=== PATIENT | male | born 1950 | race Caucasian/White ===

== ENCOUNTER 2019-03-20 18:22 | Outpatient (REF) | payer BC, MEDICARE, SELFPAY ==
[2019-03-20 21:00] LABS: ALT 31 U/L (12-78); Anion Gap 8.9 mmol/L (3-11); BUN 23 mg/dL (7-18); CO2 31.1 mmol/L (21.0-32.0); CREATININE 1.33 mg/dL (0.70-1.30); Calcium 9.3 mg/dL (8.5-10.1); Chloride 101 mmol/L (98-107); Digoxin 1.27 ng/mL (0.90-2.00); Estimated GFR 53.31 (mL/min/1.73m2); Glucose 130 mg/dL (70-100); LDL CHOLESTEROL 83 mg/dL (<100); Potassium 3.7 mmol/L (3.5-5.1); Sodium 141 mmol/L (136-145)
== END 2019-03-20 18:42 ==
LOC: NCHCN 18:22
PROVIDERS: PCP Internal Medicine; Visit Provider Internal Medicine
DX: I10 Essential (primary) hypertension (principal); E78.5 Hyperlipidemia, unspecified
CPT/HCPCS: 80048; 83721; 80162; 84460

== ENCOUNTER 2020-07-01 18:24 | Outpatient (REF) | payer BC, MEDICARE, SELFPAY ==
[2020-07-01 21:41] LABS: ALT 33 U/L (16-63); Anion Gap 11.5 mmol/L (3-11); BUN 32 mg/dL (7-18); CO2 26.5 mmol/L (21.0-32.0); CREATININE 1.46 mg/dL (0.70-1.30); Calcium 9.2 mg/dL (8.5-10.1); Chloride 99 mmol/L (98-107); Estimated GFR 47.73 (mL/min/1.73m2); Glucose 277 mg/dL (74-106); LDL CHOLESTEROL 76 mg/dL (<100); Potassium 4.3 mmol/L (3.5-5.1); Sodium 137 mmol/L (136-145)
== END 2020-07-01 18:44 ==
LOC: NCHCN 18:24
PROVIDERS: PCP Internal Medicine; Visit Provider Internal Medicine
DX: Z00.00 Encounter for general adult medical examination without abnormal findings (principal); E11.9 Type 2 diabetes mellitus without complications; I48.0 Paroxysmal atrial fibrillation; Z79.01 Long term (current) use of anticoagulants
CPT/HCPCS: 80048; 83721; 84460

== ENCOUNTER 2021-01-20 08:36 | Outpatient (CLI) | payer BC, MEDICARE, SELFPAY | END 2021-01-20 08:37 | disposition home or self-care (01) | LOC: DI.CARD 08:37 | PROVIDERS: PCP Internal Medicine; Visit Provider Internal Medicine Cardiovascular Disease ==

== ENCOUNTER 2021-02-16 13:23 | Outpatient (REF) | payer BC, MEDICARE, SELFPAY ==
[2021-02-16 16:27] LABS: HCT 42.4 % (40.0-50.0); HGB 13.9 g/dL (13.5-17.5)
[2021-02-16 16:38] LABS: Albumin 3.6 g/dL (3.4-5.0); Anion Gap 11.7 mmol/L (3-11); BUN 27 mg/dL (7-18); CO2 24.3 mmol/L (21.0-32.0); CREATININE 1.6 mg/dL (0.70-1.30); Calcium 9.1 mg/dL (8.5-10.1); Chloride 105 mmol/L (98-107); Estimated GFR 42.82 (mL/min/1.73m2); Glucose 213 mg/dL (74-106); Sodium 141 mmol/L (136-145)
[2021-02-16 16:53] LABS: PHOSPHORUS 2.9 mg/dL (2.6-4.7)
[2021-02-16 17:50] LABS: Bacteria Negative HPF (Negative); C & S Indicated? C&S Done As Ordered; Casts Negative LPF (Negative); Crystals Negative HPF (Negative); Epithelial Cells Negative HPF (Negative); Mucus Negative (Negative); Other Cells Negative (Negative); RBC >50 HPF (0-2); WBC >50 HPF (0-5)
== END 2021-02-16 13:24 | disposition home or self-care (01) ==
LOC: NCHCN 13:23
PROVIDERS: Physician Assistant; PCP Internal Medicine; Visit Provider Internal Medicine
DX: R31.9 Hematuria, unspecified (principal)
CPT/HCPCS: 80069; 81015; 85014; 85018; 87086

== ENCOUNTER 2021-03-22 22:07 | Outpatient (REF) | payer BC, MEDICARE, SELFPAY ==
[2021-03-22 19:55] LABS: Uric Acid 6.1 mg/dL (3.5-7.2)
== END 2021-03-22 22:08 | disposition home or self-care (01) ==
LOC: NCHCN 22:07
PROVIDERS: PCP Internal Medicine; Visit Provider Nurse Practitioner Family
DX: M10.071 Idiopathic gout, right ankle and foot (principal)
CPT/HCPCS: 84550

== ENCOUNTER 2021-04-21 08:28 | Outpatient (CLI) | payer BC, MEDICARE, SELFPAY ==
--- NOTE | 2021-04-21 08:15 | RT.EKG_ITS ---
APPROVED REPORT Exam: Resting ECG Reason for Exam: a clay Patient Location: O HR:112 bpm ECG Measurements Heart Rate 112 AXIS VT [id number] P [id number] QRSd 137 QRS -77 QT 361 T -5 QTc 493 Conclusion Atrial fibrillation...V-rate 80-155, irreg A-activity RBBB and LAFB...QRSd >120mS, axis(-40,240) Probable inferior infarct, age indeterminate...Q>35mS, T neg, II III aVF
== END 2021-04-21 08:29 | disposition home or self-care (01) ==
LOC: DI.CARD 08:34
PROVIDERS: PCP Internal Medicine; Visit Provider Internal Medicine Cardiovascular Disease
DX: I48.19 Other persistent atrial fibrillation (principal)
CPT/HCPCS: 93010

== ENCOUNTER 2021-07-21 08:22 | Outpatient (CLI) | payer BC, MEDICARE, SELFPAY | END 2021-07-21 08:23 | disposition home or self-care (01) | LOC: DI.CARD 08:23 | PROVIDERS: PCP Internal Medicine; Visit Provider Internal Medicine Cardiovascular Disease | DX: I48.19 Other persistent atrial fibrillation (principal) | CPT/HCPCS: 93010 ==

== ENCOUNTER 2021-09-22 08:32 | Outpatient (CLI) | payer BC, MEDICARE, SELFPAY ==
--- NOTE | 2021-09-22 08:30 | RT.EKG_ITS ---
APPROVED REPORT Exam: Resting ECG Reason for Exam: afib Patient Location: O HR:121 bpm ECG Measurements Heart Rate 121 AXIS AR [id number] P [id number] QRSd 138 QRS -63 QT 364 T 7 QTc 517 Conclusion Atrial fibrillation...V-rate 88-165, irreg A-activity RBBB and LAFB...QRSd >120mS, axis(-40,240)
== END 2021-09-22 08:33 | disposition home or self-care (01) ==
LOC: DI.CARD 08:33
PROVIDERS: PCP Internal Medicine; Visit Provider Internal Medicine Cardiovascular Disease
DX: I48.19 Other persistent atrial fibrillation (principal)
CPT/HCPCS: 93010

== ENCOUNTER 2021-12-22 08:02 | Outpatient (CLI) | payer BC, MEDICARE, SELFPAY ==
--- NOTE | 2021-12-22 08:00 | RT.EKG_ITS ---
APPROVED REPORT Exam: Resting ECG Reason for Exam: afib Patient Location: O HR:88 bpm ECG Measurements Heart Rate 88 AXIS UT [id number] P [id number] QRSd 152 QRS -64 QT 398 T 11 QTc 482 Conclusion Atrial fibrillation...V-rate 65-106, irreg A-activity Right bundle branch block...QRSd>120, terminal axis(90,270)
== END 2021-12-22 08:03 | disposition home or self-care (01) ==
LOC: DI.CARD 08:03
PROVIDERS: PCP Internal Medicine; Visit Provider Internal Medicine Cardiovascular Disease
DX: I48.19 Other persistent atrial fibrillation (principal)
CPT/HCPCS: 93010

== ENCOUNTER 2021-12-29 16:19 | Outpatient (REF) | payer BC, MEDICARE, SELFPAY ==
[2021-12-29 19:51] LABS: HCT 39.9 % (40.0-50.0); HGB 13.3 g/dL (13.5-17.5); MCH 31.3 pg (27.0-33.0); MCHC 33.3 % (32.0-36.0); MCV 93.9 fL (80-95); MPV 10.7 fL (8.0-11.0); Platelet Count 232 10^3/uL (130-400); RBC 4.25 10^6/uL (4.36-5.78); RDW 14.5 % (11.8-14.1); RDW-SD 49.4 fL; WBC 10.87 10^3/uL (4.4-10.8)
[2021-12-29 20:05] LABS: ALT 36 U/L (16-63); AST 21 U/L (15-37); Albumin 3.7 g/dL (3.4-5.0); Alkaline Phosphatase 71 U/L (46-116); Anion Gap 9.8 mmol/L (3-11); BUN 38 mg/dL (7-18); Bilirubin, Total 0.6 mg/dL (0.2-1.0); CO2 26.2 mmol/L (21.0-32.0); CREATININE 1.4 mg/dL (0.70-1.30); Calcium 9.2 mg/dL (8.5-10.1); Chloride 102 mmol/L (98-107); Estimated GFR 49.96 (mL/min/1.73m2); Glucose 102 mg/dL (74-106); Potassium 3.8 mmol/L (3.5-5.1); Sodium 138 mmol/L (136-145); Total Protein 7.5 g/dL (6.4-8.2)
== END 2021-12-29 16:20 | disposition home or self-care (01) ==
LOC: NCHCN 16:19
PROVIDERS: PCP Internal Medicine; Visit Provider Internal Medicine
DX: I10 Essential (primary) hypertension (principal); N18.30 Chronic kidney disease, stage 3 unspecified; Z79.01 Long term (current) use of anticoagulants; I48.19 Other persistent atrial fibrillation
CPT/HCPCS: 80053; 85027

== ENCOUNTER 2022-10-05 18:13 | Outpatient (REF) | payer BC, MEDICARE, SELFPAY ==
[2022-10-05 18:38] LABS: Bilirubin Negative (Negative); Blood Large (Negative); Clarity Sl Cloudy (Clear); Glucose 500 mg/dL (Negative); Ketones Negative (Negative); Leukocyte Esterase Negative (Negative); Nitrite Negative (Negative); Specific Gravity 1.025 (1.005-1.025)
[2022-10-05 18:41] LABS: HCT 39.7 % (40.0-50.0); HGB 13.5 g/dL (13.5-17.5); MCV 94 fL (80-95); MPV 10.1 fL (8.0-11.0); Platelet Count 246 10^3/uL (130-400); RBC 4.22 10^6/uL (4.36-5.78); RDW 15.6 % (11.8-14.1); RDW-SD 53.4 fL; WBC 10.44 10^3/uL (4.4-10.8)
[2022-10-05 18:47] LABS: Bacteria Rare HPF (Negative); Crystals Negative HPF (Negative); Epithelial Cells Few HPF (Negative); Mucus Trace (Negative); RBC >50 HPF (0-2); WBC 0-2 HPF (0-5)
[2022-10-05 18:48] LABS: C & S Indicated? No
== END 2022-10-05 18:14 | disposition home or self-care (01) ==
LOC: NCHCN 18:13
PROVIDERS: PCP Internal Medicine; Visit Provider Nurse Practitioner Family
DX: R31.9 Hematuria, unspecified (principal)
CPT/HCPCS: 85027; 81003; 81015

== ENCOUNTER 2022-12-21 08:26 | Outpatient (CLI) | payer BC, MEDICARE, SELFPAY ==
--- NOTE | 2022-12-21 08:15 | RT.EKG_ITS ---
APPROVED REPORT Exam: Resting ECG Reason for Exam: afib Patient Location: O HR:109 bpm ECG Measurements Heart Rate 109 AXIS UT [id number] P [id number] QRSd 143 QRS -78 QT 352 T 6 QTc 475 Conclusion Atrial fibrillation...V-rate 80-135, irreg A-activity Right bundle branch block...QRSd>120, terminal axis(90,270)
== END 2022-12-21 08:27 | disposition home or self-care (01) ==
LOC: DI.CARD 08:26
PROVIDERS: PCP Internal Medicine; Visit Provider Internal Medicine Cardiovascular Disease
DX: I48.19 Other persistent atrial fibrillation (principal); R94.31 Abnormal electrocardiogram [ECG] [EKG]; I45.19 Other right bundle-branch block
CPT/HCPCS: 93010

== ENCOUNTER 2023-07-11 21:29 | Outpatient (REF) | payer BC, MEDICARE, SELFPAY ==
[2023-07-11 19:28] LABS: Anion Gap 12.8 mmol/L (3-11); BUN 43 mg/dL (7-18); CO2 23.2 mmol/L (21.0-32.0); CREATININE 2.2 mg/dL (0.70-1.30); Calcium 9.1 mg/dL (8.5-10.1); Chloride 100 mmol/L (98-107); Estimated GFR 30.85 (mL/min/1.73m2); Glucose 178 mg/dL (74-106); Sodium 136 mmol/L (136-145)
== END 2023-07-11 21:30 | disposition home or self-care (01) ==
LOC: NCHCN 21:29
PROVIDERS: PCP Internal Medicine; Visit Provider Nurse Practitioner Family
DX: N18.30 Chronic kidney disease, stage 3 unspecified (principal); L08.89 Other specified local infections of the skin and subcutaneous tissue
CPT/HCPCS: 80048; 87077; 87186; 87070; 87205

== ENCOUNTER 2023-09-20 12:53 | Outpatient (REF) | payer BC, MEDICARE, SELFPAY | END 2023-09-20 12:54 | disposition home or self-care (01) | LOC: NCHCN 12:53 | PROVIDERS: PCP Internal Medicine; Visit Provider Internal Medicine | DX: L03.115 Cellulitis of right lower limb (principal) | CPT/HCPCS: 87077; 87070; 87186; 87205 ==

== ENCOUNTER 2023-11-16 14:39 | Outpatient (REF) | payer BC, MEDICARE, SELFPAY ==
[2023-11-16 19:17] LABS: Abs Immature Grans 0.19 10^3/uL (0.0-0.06); Absolute Basophil Count 0.12 10^3/uL (0.0-0.2); Absolute Neutrophil Count 20.44 10^3/uL (1.2-6.7); Basophils % 0.5; Eosinophils % 0.5; HCT 39.4 % (40.0-50.0); Immature Grans % 0.8; Lymphocytes % 7.7; MCH 31.2 pg (27.0-33.0); MCV 95 fL (80-95); MPV 10.7 fL (8.0-11.0); Monocytes % 5.6; Neutrophils % 84.9; Platelet Count 258 10^3/uL (130-400); RBC 4.17 10^6/uL (4.36-5.78); RDW 14.6 % (11.8-14.1); RDW-SD 50.9 fL; WBC 24.08 10^3/uL (4.4-10.8)
[2023-11-16 19:23] LABS: Absolute Eosinophil Count 0.12 10^3/uL (0.0-0.7); Absolute Lymphocyte Count 1.85 10^3/uL (1.2-3.4); Absolute Monocyte Count 1.35 10^3/uL (0.1-0.8); BUN 32 mg/dL (7-18); CREATININE 1.8 mg/dL (0.70-1.30); Calcium 9.3 mg/dL (8.5-10.1); Chloride 103 mmol/L (98-107); Estimated GFR 39.25 (mL/min/1.73m2); Glucose 222 mg/dL (74-106); Potassium 3.8 mmol/L (3.5-5.1); Sodium 140 mmol/L (136-145)
[2023-11-16 19:29] LABS: RBC >50 HPF (0-2); WBC 20-50 HPF (0-5)
[2023-11-16 19:30] LABS: C & S Indicated? C&S Done As Ordered
[2023-11-16 19:31] LABS: RBC Morphology Normal
[2023-11-16 19:32] LABS: Diff Comment Agrees w/ Instrument
[2023-11-17 20:32] LABS: PSA, Screening 18.6 ng/mL (<=6.5)
== END 2023-11-16 14:40 | disposition home or self-care (01) ==
LOC: NCHCN 14:39
PROVIDERS: PCP Internal Medicine; Visit Provider Physician Assistant
DX: R30.0 Dysuria (principal); R35.0 Frequency of micturition; Z12.5 Encounter for screening for malignant neoplasm of prostate
CPT/HCPCS: 80048; 84153; 87077; 81015; 85025; 87086; 87186

== ENCOUNTER 2024-04-24 15:21 | Outpatient (REF) | payer BC, MEDICARE, SELFPAY ==
[2024-04-24 20:18] LABS: HCT 42.9 % (40.0-50.0); HGB 14.2 g/dL (13.5-17.5); MCH 31.8 pg (27.0-33.0); MCHC 33.1 % (32.0-36.0); MCV 96 fL (80-95); MPV 10.6 fL (8.0-11.0); Platelet Count 218 10^3/uL (130-400); RBC 4.46 10^6/uL (4.36-5.78); RDW 14.3 % (11.8-14.1); RDW-SD 50.2 fL; WBC 11.58 10^3/uL (4.4-10.8)
[2024-04-24 20:36] LABS: ALT 27 U/L (16-63); AST 23 U/L (15-37); Albumin 3.7 g/dL (3.4-5.0); Alkaline Phosphatase 73 U/L (46-116); Anion Gap 14.2 mmol/L (3-11); BUN 39 mg/dL (7-18); Bilirubin, Total 0.5 mg/dL (0.2-1.0); CO2 23.8 mmol/L (21.0-32.0); CREATININE 1.8 mg/dL (0.70-1.30); Calcium 9.1 mg/dL (8.5-10.1); Calculated LDL 35 mg/dL (<100); Chloride 106 mmol/L (98-107); Cholesterol 97 mg/dL (<200); Estimated GFR 39.01 (mL/min/1.73m2); Glucose 142 mg/dL (74-106); HDL Cholesterol 38 mg/dL (40-60); Potassium 4.3 mmol/L (3.5-5.1); Sodium 144 mmol/L (136-145); Total Protein 7.5 g/dL (6.4-8.2); Triglyceride 121 mg/dL (<150)
== END 2024-04-24 15:22 | disposition home or self-care (01) ==
LOC: NCHCN 15:21
PROVIDERS: PCP Internal Medicine; Visit Provider Internal Medicine
DX: E78.5 Hyperlipidemia, unspecified (principal); Z51.81 Encounter for therapeutic drug level monitoring
CPT/HCPCS: 80053; 80061; 85027

== ENCOUNTER 2024-08-12 01:50 | Outpatient (CLI) | payer BC, MEDICARE, SELFPAY ==
--- NOTE | 2024-08-12 | DI.NM_ITS ---
APPROVED REPORT Exam: Pharmacologic Patient Location: Out-Patient Room/Bed: Stress Nurse: Purvi Mccormick RN; Ynes Brown RN Ordering Provider:MARCO SKINNER, Contact Number: [phone] BMI: 28.24 Baseline Rhythm: Atrial Fibrillation, RBBB Indications: unstable angina co-occurent and due to coronary arteriosclerosis Medical History Medical History: BPH, afib, CKD, CAD, HTN, osteomyelitis, HLD, nicotine dependence, BARBRA, DM2 Cardiac Medications: aspirin, atorvastatin, carvedilol, digoxin, diltiazem, HCTZ, lisinopril, metopro lol, xarelto, nitroglycerin Allergies: thiopental, clopidogrel Cardiac Risk Factors: family hx, diabetes, HTN, HLD, PVD, CVD, smoker Previous Cardiac Procedures: cardiac cath 2020, 2003 - 2 stents Pretest Chest Pain Characteristics: none Exercise History: Physically active Physical Disabilities: none Lung Sounds: Clear to auscultation Heart Sounds: Irregular Stress Test Details Test: Pharmacologic stress testing performed using 0.4 mg of regadenoson per 5 mL given IV over 10 s econds. Reason for pharmacologic stress test: beta praful. Nuclear Acquisition: Rest Tc-99m/Stress Tc-99m 1 day Rest Isotope: Tc-99m Sestamibi. Dose: 10.0 Date: 08/12/2024 Injection Time: 1105 Stress Isotope: Tc-99m Sestamibi. Dose: 30.0 Date: 08/12/2024 Injection Time: 1250 HR Resting HR Supine: 58 bpm Max Heart Rate (APMHR): 146.347910 bpm Target HR (85% APMHR): 124.363944 bpm Max HR Achieved: 98 bpm % of APMHR: 67.12 Recovery HR: 75 bpm BP Resting BP Supine: 118/62 mmHg Max BP: 132/64 mmHg Recovery BP: 114/58 mmHg ECG Resting ECG: Atrial Fibrillation, RBBB Ectopy: occasional PVCs Stress ECG: Atrial Fibrillation, RBBB ST Change: Nondiagnostic low heart rate Arrhythmia: occasional PVCs Recovery ECG: Atrial Fibrillation, RBBB Recovery ST Change: Nondiagnostic low heart rate Recovery Arrhythmia: occasional PVCs Clinical Stress Symptoms: mild SOB, mild dizziness Angina Score: None Rate Pressure Product: 22325 Stress ECG Conclusion 1. Resting electrocardiogram showed atrial fibrillation, right bundle branch block 2. Patient underwent testing using pharmacologic stress with regadenoson. Peak heart rate achieved w as 67% of maximal predicted for age 3. Electrocardiographic portion of the test was nondiagnostic 4. See MPI report Stress Test Summary STAGE HR BP SpO2 Symptoms NOTES Supine 58 118/62 1 min post Lexiscan injection 51 132/64 98 mild SOB 3 min post Lexiscan injection 60 120/62 mild SOB, mild dizziness 6 min post Lexiscan injection 75 114/58 symptoms resolved MPI Conclusion Myocardial perfusion appears normal. There is no ischemia or evidence of prior infarct Calculated EF is 45%. There is mild global hypokinesis Radiologist Interpretation Radiologist Interpretation by: Marco Ni MD Interpretation Date/Time: 08/12/2024 15:58:38
[2024-08-12] MEDS: Regadenoson 0.4 MG/5 ML SYR IVP (12:45)
== END 2024-08-12 02:10 ==
LOC: DI 01:50
PROVIDERS: PCP Internal Medicine; Visit Provider Internal Medicine
DX: I25.110 Atherosclerotic heart disease of native coronary artery with unstable angina pectoris (principal)
CPT/HCPCS: 78452; 93017; J2785

== ENCOUNTER 2024-08-21 10:47 | Outpatient (CLI) | payer BC, MEDICARE, SELFPAY ==
--- NOTE | 2024-08-21 10:45 | RT.EKG_ITS ---
APPROVED REPORT Exam: Resting ECG Reason for Exam: a-fib/chest poain Patient Location: O HR:82 bpm ECG Measurements Heart Rate 82 AXIS NH [id number] P [id number] QRSd 147 QRS -79 QT 418 T 6 QTc 489 Conclusion Atrial fibrillation...V-rate 66-101, irreg A-activity RBBB and LAFB...QRSd >120mS, axis(-40,240)
== END 2024-08-21 10:48 | disposition home or self-care (01) ==
LOC: DI.CARD 10:47
PROVIDERS: PCP Internal Medicine; Visit Provider Internal Medicine Cardiovascular Disease
DX: I48.19 Other persistent atrial fibrillation (principal)
CPT/HCPCS: 93010

== ENCOUNTER 2024-08-23 17:29 | Outpatient (REF) | payer BC, MEDICARE, SELFPAY ==
[2024-08-23 19:12] LABS: HCT 40.6 % (40.0-50.0); HGB 13.6 g/dL (13.5-17.5); MCH 32.9 pg (27.0-33.0); MCHC 33.5 % (32.0-36.0); MCV 98 fL (80-95); MPV 10.1 fL (8.0-11.0); Platelet Count 225 10^3/uL (130-400); RBC 4.13 10^6/uL (4.36-5.78); RDW 14.1 % (11.8-14.1); RDW-SD 51.2 fL; WBC 16.26 10^3/uL (4.4-10.8)
[2024-08-23 20:05] LABS: Uric Acid 7.6 mg/dL (3.5-7.2)
== END 2024-08-23 17:30 | disposition home or self-care (01) ==
LOC: NCHCN 17:29
PROVIDERS: PCP Internal Medicine; Visit Provider Internal Medicine
DX: M10.09 Idiopathic gout, multiple sites (principal)
CPT/HCPCS: 85027; 84550; 86140

== ENCOUNTER 2025-02-03 01:24 | Outpatient (CLI) | payer BC, MEDICARE, SELFPAY ==
--- NOTE | 2025-02-03 06:45 | DI.US_ITS ---
APPROVED REPORT EXAM: Comprehensive 2D, Doppler, and color-flow Echocardiogram Patient Location: Out-Patient Jewelry Polisher: Carlos Torres RDCS (AE) Indications: History of WI, CAD, AFIB, Angina Conclusion Normal left ventricular wall thickness and chamber size. Ejection fraction is 50 to 55%. There is v joshua mild global hypokinesis Normal right ventricular size and function Moderately enlarged left atrium. Right atrial size is normal There are no structural valvular abnormalities Mild mitral regurgitation Estimated right ventricular systolic pressure is 20 mmHg Wall motion Left Ventricle The left ventricle is normal size. Left ventricular systolic function is borderline. There is normal left ventricular wall thickness. There is normal LV segmental wall motion. There is no ventricular se ptal defect visualized. LVEF is 50-53%. Right Ventricle The right ventricle is normal size. The right ventricular systolic function is normal. Atria Left atrium is moderately dilated. The right atrium size is normal. Aortic Valve The aortic valve is normal in structure. Aortic valve is trileaflet. There is no aortic valvular sten osis. No aortic regurgitation is present. Mitral Valve The mitral valve is normal in structure. No evidence of mitral valve stenosis. mild mitral regurgitat ion. Tricuspid Valve The tricuspid valve is normal in structure. There is no tricuspid valve stenosis. Trace tricuspid reg urgitation. The RVSP is 20 mmHg. Pulmonic Valve The pulmonary valve is normal in structure. There is no pulmonic valvular stenosis. There is no pulmo ravi valvular regurgitation. Great Vessels The aortic root is normal in size. The ascending aorta is normal in size. Aortic arch is not well vis ualized. IVC is normal in size and collapses >50% with inspiration. Pericardium There is no pericardial effusion. 2D Dimensions IVSD d PLAX 0.75 cm M: 0.6-1.2 Ao Root d 2.83 cm M: 3.1 - 3.7 LVPW d PLAX 0.73 cm M: 0.6 - 1.2 Ao Asc Diam d 3.13 cm M: 2.6 - 3.4 LVID d PLAX 4.61 cm M: 4.2 - 5.8 LVDs 3.45 cm M: 2.5 - 4.0 LV EF Teichholz 49.7 % FS 25.14 % LV EDV (Teich) 98.1 mL LV ESV (Teich) 49.3 mL Stroke Vol Index (Teich) 25.01 M-Mode TAPSE 2.22 cm (M/F) >1.7 Auto EF LV EDV A4C 115.3 mL LV EDV A2C 110.3 mL LV EDV BP 113.9 mL LV ESV A4C 55.1 mL LV ESV A2C 62.3 mL LV ESV BP 59.3 mL LVEF(%) A4C 52.3 % LVEF(%) A2C 43.9 % LVEF(%) BP 48.0 % LV SV A4C 60.3 ml LV SV A2C 48.0 ml LV SV BP 54.6 ml LV CO A4C 5.8 L/min LV CO A2C 4.0 L/min LV CO BP 4.9 L/min HR A4C 95.75 BPM HR A2C 83.92 BPM LV EDV Index (BP) LA Volume LA Length A4C 6.6 cm LA Length A2C 6.3 cm LA Area A4C s 22.41 cm2 LA Area A2C s 23.76 cm2 LA Vol A4C A-L 64.18 mL LA Vol A2C A-L 76.31 mL LA Vol Biplane A-L 72.0 mL LA Vol/BSA A4C A-L LA Vol/BSA A2C A-L LA Vol/BSA BP A-L 36.9 mL/m2 LA Vol A4C MOD 61.3 mL LA Vol A2C MOD 75.1 mL LA Vol BP MOD 69.5 mL RA Volume RA Area A4C 11.9 cm2 RA ESV A4C (A-L) 22.0mL RA Vol/BSA A4C A-L RA Length A4C 5.4 cm RA ESV A4C (MOD) 20.9mL LV Diastology MV E' medial 0.039 (>0.07 m/s) MV E Vmax 1.02 (0.4-1.3 m/s) MV E' lateral 0.104 (>0.1 m/s) Aortic Valve AoV Vmax 1.26 m/s LVOT Vmax 0.91 m/s AoV Peak Grad 6.4 mmHg LVOT Peak Grad 3.3 mmHg AoV Area (Vmax) 2.35 cm2 LVOT VTI 0.198 m AoV VTI 0.278 m LVOT Mean Grad 2.0 mmHg AoV Mean Jaden. 0.89 m/s LVOT SV 64.34 mL AoV Mean Grad 3.6 mmHg LVOT Diam s 2.00 cm AoV Area (VTI) 2.32 cm2 AV Regurg Peak Gr. 6.39 mmHg Velocity Ratio 0.72 Pulmonary Valve PV Vmax 0.84 (0.5-1.5 m/s) RVOT Vmax 0.57 m/s PV Peak Grad 2.8 mmHg RVOT Peak Gr. 1.3 mmHg PV Mean Jaden 0.63 m/s RVOT VTI 0.115 m PV Mean Grad 1.7 mmHg RVOT Mean Gr. 0.8 mmHg Tricuspid Valve RA Pressure 3.00 mmHg TR Vmax 2.08 m/s TR Peak Grad 17.3 mmHg RVSP (TR) 20.3 mmHg
== END 2025-02-03 01:44 ==
LOC: DI 01:24
PROVIDERS: PCP Internal Medicine; Visit Provider Internal Medicine Cardiovascular Disease
DX: I25.10 Atherosclerotic heart disease of native coronary artery without angina pectoris (principal); I48.19 Other persistent atrial fibrillation; E11.51 Type 2 diabetes mellitus with diabetic peripheral angiopathy without gangrene; I21.4 Non-ST elevation (NSTEMI) myocardial infarction
CPT/HCPCS: 93306

== ENCOUNTER 2025-03-24 15:12 | Outpatient (REF) | payer BC, MEDICARE, SELFPAY ==
[2025-03-24 19:32] LABS: HCT 39.3 % (40.0-50.0); HGB 13.2 g/dL (13.5-17.5); MCH 32.3 pg (27.0-33.0); MCHC 33.6 % (32.0-36.0); MCV 96 fL (80-95); MPV 10.1 fL (8.0-11.0); Platelet Count 206 10^3/uL (130-400); RBC 4.09 10^6/uL (4.36-5.78); RDW 14.6 % (11.8-14.1); RDW-SD 50.6 fL; WBC 9.69 10^3/uL (4.4-10.8)
[2025-03-24 20:04] LABS: ALT 45 U/L (16-63); AST 23 U/L (15-37); Albumin 3.3 g/dL (3.4-5.0); Alkaline Phosphatase 74 U/L (46-116); Anion Gap 11.9 mmol/L (3-11); BUN 36 mg/dL (7-18); Bilirubin, Total 0.5 mg/dL (0.2-1.0); CO2 25.1 mmol/L (21.0-32.0); CREATININE 1.7 mg/dL (0.70-1.30); Calculated LDL 19 mg/dL (<100); Chloride 105 mmol/L (98-107); Cholesterol 94 mg/dL (<200); Estimated GFR 41.52 (mL/min/1.73m2); Glucose 168 mg/dL (74-106); HDL Cholesterol 38 mg/dL (>or=40); Potassium 4.1 mmol/L (3.5-5.1); Sodium 142 mmol/L (136-145); Total Protein 7.1 g/dL (6.4-8.2); Triglyceride 187 mg/dL (<150)
[2025-03-26 10:32] LABS: PSA, Screening 0.9 ng/mL (<=6.5)
== END 2025-03-24 15:13 | disposition home or self-care (01) ==
LOC: NCHCN 15:12
PROVIDERS: PCP Internal Medicine; Visit Provider Internal Medicine
DX: N18.30 Chronic kidney disease, stage 3 unspecified (principal); I48.0 Paroxysmal atrial fibrillation; E78.5 Hyperlipidemia, unspecified; N40.1 Benign prostatic hyperplasia with lower urinary tract symptoms
CPT/HCPCS: 80053; 80061; 84153; 85027

== ENCOUNTER 2025-09-30 15:31 | Outpatient (REF) | payer BC, MEDICARE, SELFPAY ==
[2025-09-30 19:45] LABS: Anion Gap 8.2 mmol/L (3-11); BUN 35 mg/dL (9-23); CO2 22.8 mmol/L (20.0-31.0); Calcium 9.6 mg/dL (8.3-10.6); Chloride 107 mmol/L (98-107); Cholesterol 103 mg/dL (<200); Glucose 145 mg/dL (74-106); HDL Cholesterol 34 mg/dL (>40); Potassium 4.4 mmol/L (3.5-5.1); Sodium 138 mmol/L (136-145)
[2025-09-30 20:06] LABS: Microalb ug/mg Crea 438.4 ug/mg Cr
== END 2025-09-30 15:32 | disposition home or self-care (01) ==
LOC: NCHCN 15:31
PROVIDERS: PCP Internal Medicine; Visit Provider Nurse Practitioner
DX: E11.65 Type 2 diabetes mellitus with hyperglycemia (principal)
CPT/HCPCS: 80048; 80061; 82043; 82570

== ENCOUNTER → 2025-10-27 00:48 | Outpatient (CLI) | payer BC, MEDICARE, SELFPAY ==
--- NOTE | 2025-10-27 | DI.US_ITS ---
Exam(s) US AAA SCREENING EXAM: US AAA SCREENING CLINICAL HISTORY: FORMER SMOKER [id number] PERS HX NICOTINE DEPENDENCE COMPARISON: No exams were available for comparison FINDINGS: Abdominal Aorta: Proximal: 2.5 cm Mid: 1.8 cm Distal: 2.0 cm Iliacs: Right: 1.2 cm Left: 1.1 cm IMPRESSION: No evidence of abdominal aortic aneurysm. DATA REPOSITORY:
== END ==
PROVIDERS: PCP Internal Medicine; Visit Provider Nurse Practitioner
DX: Z13.6 Encounter for screening for cardiovascular disorders (principal); Z87.891 Personal history of nicotine dependence
CPT/HCPCS: 76706